=== PATIENT | female | born 1990 | race Caucasian/White ===

== ENCOUNTER 2018-03-01 13:42 | Emergency (ER) | payer OTHER ==
--- NOTE | 2018-03-01 13:55 | EDPHY ---
H & P Time Seen by Provider: 03/01/18 13:53 HPI/ROS: CHIEF COMPLAINT: Possible seizure, headache HISTORY OF PRESENT ILLNESS: This is a 27-year-old female who presents after having what was possibly a seizure. This is the 2nd such episode for her this week. Paramedics report that 2 days ago, after intercourse, she had an episode where her eyes rolled back (per her boyfriend) and she subsequently developed headache. At the time of that episode she reported feeling as if she was"out of her body". Today while in the shower she developed a similar out of body feeling, exited the shower, and fell to the floor. The floor was carpeted and she does not believe she injured herself. She does think that she passed out at that time. When she awoke she had a 7/10 right frontotemporal headache similar to but worse than the 1 she had 2 days ago. She has associated photophobia. No vomiting. She has no known history of migraines. She treated the previous headache with ibuprofen and Excedrin but it took a couple of days for it to resolve. No history of seizure disorder. She did smoke a small amount of marijuana earlier today and states that this is common for her. Last night she had a small bump of cocaine, also not uncommon. She felt totally normal last night. REVIEW OF SYSTEMS: A ten point review of systems was performed and is negative with the exception of the items mentioned in the HPI. Past medical history: Negative Past surgical history: Negative Family history: No family history of seizures. Social history: General Appearance: Alert. Vital signs reviewed. Blood pressure 138/88 at triage. Eyes: Pupils equal and round, no conjunctival injection, no discharge. Anicteric. ENT, Mouth: Mucous membranes are moist, no oropharyngeal erythema or edema. Neck: No lymphadenopathy, supple. No carotid bruits. Nontender to palpation over the cervical spine. Respiratory: Lungs are clear to auscultation; no wheezes, rales, or rhonchi. Cardiovascular: Regular rate and rhythm; no murmur, rub, or gallop. Gastrointestinal: Abdomen is soft and nontender, no masses or organomegaly, bowel sounds normal. Skin: Warm and dry, no rashes on exposed skin, normal color. Back: Nontender to palpation over the thoracolumbar spine. No CVAT. Extremities: No lower extremity edema, no calf tenderness or swelling. Neurological: Alert and oriented. Moving all four extremities easily and equally. Cranial nerves II through XII are examined and are intact (visual acuity not tested). Strength is 5 over 5 bilaterally with testing of all major motor groups. Sensation is intact to light touch over all 4 extremities. Deep tendon reflexes are 2+ in the biceps and knees bilaterally. [id number] is performed accurately. Psychiatric: Normal affect. Constitutional: Initial Vital Signs Temperature (C) 36.8 C 03/01/18 13:48 Heart Rate 85 03/01/18 13:48 Respiratory Rate 16 03/01/18 13:48 Blood Pressure 138/88 H 03/01/18 13:48 O2 Sat (%) 96 03/01/18 13:48 O2 Delivery Mode Room Air Allergies/Adverse Reactions: No Known Allergies Allergy (Verified 03/02/18 20:23) Home Medications: Medication Instructions Recorded NK [No Known Home Meds] 03/01/18 Medical Decision Making - Diagnostics EKG Interpretation: 12 lead EKG is interpreted in Trace master View by emergency department physician. Normal sinus rhythm. ED Course/Re-evaluation: Patient had no seizure activity while in the emergency department. She underwent serial evaluations and remained neurologically intact/unchanged throughout her stay in the department. She did continue to complain of headache. CT scan reported to me by Dr. Rodrigues. I reviewed the images. There is a question of a right subcortical hemorrhage versus artifact. Given her history, CT will be followed by MRI to further assess. 1 of my concerns for subarachnoid hemorrhage. 4:30 p.m. MRI without contrast reported to me by Dr. James Bearden. No acute injuries noted. No subarachnoid hemorrhage or other concerning findings. 4:45 p.m.: Patient is receiving medications to treat what is presumed to be a migraine headache. She is being given Benadryl, Reglan, and Toradol. She has received 1 L IV fluids. At this point in time she continues with headache and photophobia. After hearing additional history from her boyfriend I do not think that she had a seizure. I think that symptoms are consistent with a migraine headache. In the emergency department she had resolution of her headache, removed her dark glasses, felt well enough to return home. She is discharged with referral to Neurology. Danger signs that should prompt her to be re-evaluated-- including syncope or seizure activity--were reviewed with the patient and her friends. Differential Diagnosis: Headache including but not limited to subarachnoid hemorrhage, migraine headache , tension headache and infectious causes such as meningitis, pharyngitis and sinusitis. Seizure including but not limited to electrolyte abnormality, alcohol withdrawal, medication noncompliance, head injury, and breakthrough seizure. - Data Points Laboratory Results: Laboratory Results 03/01/18 13:45 03/01/18 13:45 Medications Given: Discontinued Medications Diphenhydramine HCl (Benadryl Injection) 25 mg IVP EDNOW ONE Stop: 03/01/18 15:40 Last Admin: 03/01/18 16:41 Dose: 25 mg Sodium Chloride (Ns) 1,000 mls @ 0 mls/hr IV ONCE ONE; Wide Open PRN Reason: Protocol Stop: 03/01/18 13:57 Last Admin: 03/01/18 14:27 Dose: 1,000 mls Ketorolac Tromethamine (Toradol) 15 mg IVP ONCE ONE Stop: 03/01/18 16:44 Last Admin: 03/01/18 16:50 Dose: 15 mg Metoclopramide HCl (Reglan Injection) 10 mg IVP EDNOW ONE Stop: 03/01/18 15:40 Last Admin: 03/01/18 16:44 Dose: 10 mg Departure - Departure Disposition: Home, Routine, Self-Care Clinical Impression: Migraine headache Qualifiers: Migraine type: with aura Status migrainosus presence: without status migrainosus Intractability: not intractable Qualified Code(s): G43.109 - Migraine with aura, not intractable, without status migrainosus Condition: Good Instructions: Migraine Headache (ED) Additional Instructions: I am referring you to a neurologist, Dr. Collin De La Cruz. Call his office on Saturday and let the office staff know about your recent headaches and visit to the emergency department. They will schedule an appointment for you. If you have any fainting or seizure activity you should be re-evaluated. If you experience headache or pain I recommend the following approach: Adult Pain & Fever Control: We recommend Acetaminophen (Tylenol) and Ibuprofen (Motrin,Advil) for pain and fever control. When fever is high or pain severe, both drugs can be used at the same time, but at different intervals. Please note the time differences. Your dose is: Acetaminophen 650mg every 4 to 6 hours Ibuprofen 400mg every 6 hours with food OR Note: do not take Acetaminophen with Hydrocodone (Vicodin, Lortab) or Oycodone (Percocet). These medications also contain Acetaminophen. No more than 3000mg of Acetaminophen should be taken in 24 hours (for an adult). Referrals: Royal Aranda PA [Non Staff and Non MD] - As per Instructions Collin De La Cruz DO [Medical Doctor] - As per Instructions
[2018-03-01] MEDS ORDERED: NS 1,000 ML IV ONE (13:56)
[2018-03-01 14:01] LABS: PLATELET COUNT 346 10^3/uL (150-400)
--- NOTE | 2018-03-01 14:01 | CPEKG ---
Heart Rate: 60 RR Interval: 1000 P-R Interval: 168 QRSD Interval: 78 QT Interval: 400 QTC Interval: 400 P [place]: 31 QRS [place]: 61 T Wave [place]: 45 EKG Severity - NORMAL ECG - EKG Impression: SINUS RHYTHM Electronically Signed By: Melina Hutchinson 01-Mar-2018 21:50:26
[2018-03-01] MEDS ORDERED: METOCLOPRAMIDE 10 MG/2 ML VIAL IVP ONE (15:39)
[2018-03-01] MEDS ORDERED: KETOROLAC 15 MG/1 ML SDV IVP ONE (16:43)
[2018-03-01 18:08] VITALS: BP 112/64
== END 2018-03-01 18:07 | disposition home or self-care (01) ==
LOC: EDUNIT#
DX: G43.109 Migraine with aura, not intractable, without status migrainosus (principal); E86.9 Volume depletion, unspecified
CPT/HCPCS: 96374; J1200; J1885; J2765

== ENCOUNTER 2018-03-02 20:19 | Observation (INO) | payer OTHER ==
--- NOTE | 2018-03-02 20:39 | EDPHY ---
H & P Stated Complaint: Syncope, photophobia, nausea Time Seen by Provider: 03/02/18 20:39 HPI/ROS: CHIEF COMPLAINT: Syncope, photophobia and nausea HISTORY OF PRESENT ILLNESS: The patient presents emergency department after 2 episodes of syncope versus seizure earlier today. The patient reportedly has had 4 discrete events over the past 4 days. The event is typically characterized by the sensation presyncope and nausea. The patient has had a loss of consciousness with reported "twitching" ocular movements noted. The patient was seen in the emergency department yesterday and had a unremarkable brain MRI and laboratory testing. The patient did not have any reported tonic- clonic activity today. The patient does complain of mild photophobia but denies severe headache. The patient has no prior history of the symptoms. The patient takes no regular medications. She has no history of migraines. In the emergency department the patient's chief complaint of someone of nausea. REVIEW OF SYSTEMS: A comprehensive 10 point review of systems is otherwise negative aside from elements mentioned in the history of present illness. Source: Patient - Personal History LMP (Females 10-55): IUD In Place Current Tetanus Diphtheria and Acellular Pertussis (TDAP): Yes - Medical/Surgical History Hx Asthma: Yes Hx Chronic Respiratory Disease: No Hx Diabetes: No Hx Cardiac Disease: No Hx Renal Disease: No Hx Cirrhosis: No Hx Alcoholism: No Hx HIV/AIDS: No Hx Splenectomy or Spleen Trauma: No Other PMH: IUD - Social History Smoking Status: Never smoked - Physical Exam Exam: General Appearance: Alert, mild discomfort Eyes: Pupils equal and round no pallor or injection ENT, Mouth: Mucous membranes moist Respiratory: There are no retractions, lungs are clear to auscultation Cardiovascular: Regular rate and rhythm Gastrointestinal: Abdomen is soft and nontender, no masses, bowel sounds normal Neurological: A&O, normal motor function, normal sensory exam, normal cranial nerves Skin: Warm and dry, no rashes Musculoskeletal: Neck is supple nontender, specifically no meningeal symptoms Extremities: symmetrical, full range of motion Constitutional: Initial Vital Signs Temperature (C) 36.7 C 03/02/18 20:24 Heart Rate 82 03/02/18 20:24 Respiratory Rate 18 03/02/18 20:24 Blood Pressure 114/86 H 03/02/18 20:24 O2 Sat (%) 97 03/02/18 20:24 O2 Delivery Mode Room Air Allergies/Adverse Reactions: No Known Allergies Allergy (Verified 03/02/18 20:23) Home Medications: Medication Instructions Recorded NK [No Known Home Meds] 03/01/18 Medical Decision Making - Diagnostics EKG Interpretation: EKG: Complete interpretation has been separately recorded in the [employer] archive. Summary impression: Sinus rhythm, rate 66 ED Course/Re-evaluation: The patient presents to the ED after a series of events over the past several days which are somewhat difficult to characterize. Central to the events seems to be antecedent nausea and presyncope. She has had a total of 4 discrete events. There has been a description of loss of consciousness with a variable description of rapid eye movements without generalized tonic-clonic activity. The patient was seen in the ED yesterday and had a unremarkable CT scan and brain MRI. She returned home today and had had an additional 2 episodes 1 witnessed by her boyfriend and 1 witnessed by her roommate. The patient arrived in the emergency department and was noted to be neurologically intact and afebrile. She has no obvious meningeal symptoms on exam. The patient's EKG demonstrates no evidence of arrhythmia and her metabolic panel continues to be normal. This point time the etiology of her symptoms are somewhat uncertain. It is curious as she has never had these type of symptoms before in the past. I do feel would be reasonable to observe her in the hospital and have Neurology see her as well as evaluate her for cardiogenic causes of syncope. Consultation was made with Dr. Felton from the hospitalist service who will admit the patient. Differential Diagnosis: Differential diagnosis considered includes seizure, syncope, dehydration, metabolic abnormality, vasovagal episode, anxiety reaction - Data Points Laboratory Results: Laboratory Results 03/02/18 20:43 03/02/18 20:43 Sodium 140 mEq/L mEq/L (135-145) Potassium 4.2 mEq/L mEq/L (3.5-5.2) Chloride 105 mEq/L mEq/L (97-110) Carbon Dioxide 24 mEq/l mEq/l (22-31) Anion Gap 11 mEq/L mEq/L (8-16) BUN 9 mg/dL mg/dL (7-23) Creatinine 0.7 mg/dL mg/dL (0.6-1.0) Estimated GFR > 60 Glucose 86 mg/dL mg/dL (70-100) Calcium 9.2 mg/dL mg/dL (8.5-10.4) Departure - Departure [facility] Clinical Impression: Syncope Condition: Good Referrals: NONE *PRIMARY CARE P,. [Primary Care Provider] - As per Instructions
--- NOTE | 2018-03-02 20:56 | CPEKG ---
Heart Rate: 66 RR Interval: 909 P-R Interval: 176 QRSD Interval: 72 QT Interval: 400 QTC Interval: 420 P [place]: 36 QRS [place]: 67 T Wave [place]: 51 EKG Severity - NORMAL ECG - EKG Impression: SINUS RHYTHM Electronically Signed By: Stephen Michelle 02-Mar-2018 21:07:05
[2018-03-02] MEDS ORDERED: IOPAMIDOL (ISOVUE 370) 100 ML BTL IV ONE (21:57)
[2018-03-02] MEDS ORDERED: ONDANSETRON 4 MG/2 ML VIAL IVP PRN (22:04)
[2018-03-02 22:12] LABS: PLATELET COUNT 301 10^3/uL (150-400)
[2018-03-02] MEDS: ACETAMINOPHEN 325 MG TAB PO PRN (22:30)
[2018-03-02] MEDS: ONDANSETRON DISINTEGRATING 4 MG TAB PO PRN (22:30)
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
[2018-03-03] MEDS ORDERED: ALBUTEROL 60 PUFFS/8 GM MDI IH PRN ×2 (03:58→13:51)
[2018-03-03] MEDS ORDERED: levETIRAcetam 1000MG/NACL 100 ML IV ONE (03:59)
[2018-03-03] MEDS: ONDANSETRON DISINTEGRATING 4 MG TAB PO PRN ×2 (04:22→20:12)
[2018-03-03] MEDS: ACETAMINOPHEN 325 MG TAB PO PRN ×3 (04:22→17:54)
[2018-03-03] MEDS ORDERED: levETIRAcetam 500 MG TAB PO SCH (09:00)
[2018-03-03] MEDS ORDERED: DIAZEPAM 10 MG TAB PO ONE (12:44)
[2018-03-03] MEDS ORDERED: DIAZEPAM 5 MG TAB PO ONE (13:00)
--- NOTE | 2018-03-03 13:19 | HOSPPROG ---
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 eyes fluttering, following commands, GODWIN Objective: Vital Signs Temp Pulse Resp BP Pulse Ox 36.4 C 78 19 98/65 L 95 03/03/18 12:00 03/03/18 12:00 03/03/18 12:00 03/03/18 12:00 03/03/18 12:00 Laboratory Results 03/02/18 22:17 03/02/18 03/03/18 03/04/18 05:59 05:59 05:59 Intake Total 350 Balance 350 - Physical Exam Constitutional: no apparent distress, appears nourished Eyes: PERRL, anicteric sclera Ears, Nose, Mouth, Throat: moist mucous membranes, hearing normal Cardiovascular: regular rate and rhythym, no murmur, rub, or gallop Respiratory: no respiratory distress, no rales or rhonchi Gastrointestinal: normoactive bowel sounds, soft, non-tender abdomen Genitourinary: no bladder fullness, No hardin in urethra Skin: warm, normal color Musculoskeletal: full muscle strength, no muscle tenderness Neurologic: AAOx3, sensation intact bilaterally Psychiatric: interacting appropriately ICD10 Worksheet Patient Problems: Problems Problem Status Onset Syncope Acute
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
[2018-03-03] MEDS ORDERED: ACETAMINOPHEN 500 MG TAB PO PRN (13:51)
[2018-03-03] MEDS ORDERED: TEARS/DEXTRAN 70/HYPROMELLOSE 15 ML OPHT.BTL EACHEYE PRN (13:51)
[2018-03-03] MEDS ORDERED: diphenhydrAMINE 25 MG CAP PO PRN (13:51)
[2018-03-03] MEDS ORDERED: IBUPROFEN 200 MG TAB PO PRN (13:51)
--- NOTE | 2018-03-03 15:28 | ASMTCMCOM ---
CM Note CM Note Notes: Pt in for seizure vs. syncope. EEG pending. Neurology consulting. [facility] rec home/outpatient. Pt resides w sister who has been bedside. CM to follow for d/c planning needs. Date Signed: 03/03/2018 03:27 PM Electronically Signed By:LORIN Ruiz
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
[2018-03-03] MEDS: levETIRAcetam 250 MG TAB PO SCH (20:07)
[2018-03-03] MEDS: CALCIUM CARBONATE 500 MG CHEWABLE TAB PO PRN (20:07)
[2018-03-04] MEDS: ACETAMINOPHEN 325 MG TAB PO PRN (05:30)
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
[2018-03-04] MEDS: levETIRAcetam 250 MG TAB PO SCH (09:00)
[2018-03-04] MEDS: CALCIUM CARBONATE 500 MG CHEWABLE TAB PO PRN (09:00)
--- NOTE | 2018-03-04 11:38 | HOSPPROG ---
Hospitalist Progress Note Assessment/Plan: 27 yo F w likely pseudoseizures neurologic events: having night terrors no metabolic acidosis not post ictal this is most c/w pseudoseizures EEG today PNES: rec cognitive behavioral therapy time> 35 miutes today dispo: pending Subjective: case d/w dr villeda Objective: Vital Signs Temp Pulse Resp BP Pulse Ox 36.8 C 70 18 96/57 L 90 L 03/04/18 08:00 03/04/18 08:00 03/04/18 08:00 03/04/18 08:00 03/04/18 08:00 Laboratory Results 03/02/18 22:17 03/03/18 16:45 03/03/18 03/04/18 03/05/18 05:59 05:59 05:59 Intake Total 350 2500 Output Total 1425 300 Balance 350 1075 -300 - Time Spent With Patient Time Spent with Patient: greater than 25 minutes Time Spent with Patient: Greater than 25 minutes spent on this patients care, greater than 50% of time spent counseling, educating, and coordinating care regarding the above mentioned plan. - Physical Exam Constitutional: no apparent distress, appears nourished Eyes: PERRL, anicteric sclera Ears, Nose, Mouth, Throat: moist mucous membranes, hearing normal Cardiovascular: regular rate and rhythym, no murmur, rub, or gallop Respiratory: no respiratory distress, no rales or rhonchi Gastrointestinal: normoactive bowel sounds, soft, non-tender abdomen Genitourinary: no bladder fullness, No hardin in urethra Skin: warm, normal color Musculoskeletal: full muscle strength Neurologic: AAOx3 ICD10 Worksheet Patient Problems: Problems Problem Status Onset Pseudoseizures Acute Syncope Acute
[2018-03-04 17:34] VITALS: BP 108/67
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
--- NOTE | 2018-03-04 17:42 | GDS ---
[f rep st] DISCHARGE SUMMARY DISCHARGE DIAGNOSIS: Psychogenic nonepileptic seizures. Please see admission History and Physical by Dr. Peter Sky. The patient presented with se izure-like activity for the 2nd time in a number of days. She had an MRI 1 day prior which showed a couple of hyperintensities, but otherwise unremarkable. She was afebrile. LP was not pursued. She had CT of the head and neck. They were unremarkable. She was seen by Neurology who felt these episo tabitha were most consistent with psychogenic nonepileptic seizures. The patient had rapid eye movements and depressed level of consciousness, but was able to follow commands. She was not postictal. She did not have a metabolic acidosis. She was started on Keppra with no change with increasing frequenc y of the symptoms episodes. She had an EEG performed today during which she had one of these episode s and it was unremarkable for seizure activity. At the family's request, the patient is being transferred to the [facility] for EEG monitoring to the General Neurology Service. /[id number]/MODL
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
== END 2018-03-04 19:17 | disposition short-term general hospital (02) ==
LOC: F3N 22:20
PROVIDERS: ADMIT Internal Medicine; ATTEND Internal Medicine
DX: F44.5 Conversion disorder with seizures or convulsions (principal); Z91.410 Personal history of adult physical and sexual abuse
CPT/HCPCS: 70496; 70498; 92523; 93005; 95816; 99285; G0378; J1953; J2405; Q9967